=== PATIENT | female | born 1960 | race Caucasian/White ===

== ENCOUNTER 2019-08-02 14:58 | Outpatient (CLI) | payer OTHER, SELFPAY ==
--- NOTE | ~2019-08-02 | XR_ITS ---
EXAMINATION: XR abdomen obstructive series DATE: 08/02/2019 15:20 INDICATION: Acute epigastric pain, nausea. History of small bowel obstruction. TECHNIQUE: Supine and upright views of the abdomen. FINDINGS: Comparison to multiple prior studies sequentially, with oldest reviewed study dated 004. The visualized lung parenchyma is normal.. There is a nonobstructive bowel gas pattern. Gas and stool are seen throughout the colon to the level of the rectum. There is no free air. Lung bases are unre markable. IMPRESSION: 1. No acute abdominal abnormality. Reviewed, dictated and finalized at location A.
[2019-08-02 15:09] LABS: Hematocrit 41.9 % (35.0-49.0); Hemoglobin 14.3 g/dL (12.0-15.0); Mean Corpuscular HGB Conc 34.1 g/dL (32.0-36.0); Mean Corpuscular Hemoglobin 31.8 pg (27.0-31.0); Mean Corpuscular Volume 93.3 fL (78.0-102.0); Mean Platelet Volume 9.6 fl (9.2-11.8); Platelet Count Result 258 K/mm3 (150-420); Red Blood Count 4.49 M/mm3 (4.20-5.40); Red Cell Distribution Width 12.4 % (11.6-14.4); White Blood Count 9.2 K/mm3 (4.8-10.8)
[2019-08-02 15:26] LABS: Alanine Aminotransferase 17 U/L (14-59); Albumin Level 3.9 g/dL (3.4-5.0); Alkaline Phosphatase 119 U/L (46-116); Amylase 61 U/L (25-115); Anion Gap 10.8 mmol/L (7-16); Aspartate Amino Transferase 17 U/L (15-37); Bilirubin,Total 0.5 mg/dL (0.00-1.00); Blood Urea Nitrogen 11 mg/dL (7-18); Calcium 9.4 mg/dL (8.5-10.1); Carbon Dioxide 29 mmol/L (21-32); Chloride 105 mmol/L (98-108); Estimated Glomerular Filt Rate > 60; Glucose 97 mg/dL (70-99); Lipase 158 U/L (73-393); Osmolality Calculated 291 mOsm/kg (285-295); Potassium 3.8 mmol/L (3.5-5.1); Sodium 141 mmol/L (136-145); Total Protein 7.5 g/dL (6.4-8.2)
[2019-08-02 15:30] LABS: Total Cells Counted 100
[2019-08-02 15:31] LABS: Band Neutrophils Percent 0 % (0-6); Basophils Percent Manual 0 % (0-1); Eosinophils Absolute Manual 2.02 K/mm3 (0.02-0.5); Eosinophils Percent Manual 22 % (1-6); Lymphocytes Absolute Manual 2.57 K/mm3 (1.1-4.5); Lymphocytes Percent Manual 28 % (18-44); Monocytes Absolute Manual 0.55 K/mm3 (0.1-0.90); Monocytes Percent Manual 6 % (3-9); Neutrophils Absolute Manual 4.04 K/mm3 (1.7-7.2); Neutrophils Percent Manual 44 % (46-73); Platelet Estimate Adequate (Adequate)
== END 2019-08-02 14:59 | disposition home or self-care (01) ==
LOC: CHSLAB 15:00
PROVIDERS: PCP Internal Medicine; Visit Provider Internal Medicine
DX: R10.9 Unspecified abdominal pain (principal); R11.0 Nausea
CPT/HCPCS: 36415; 74019; 80053; 82150; 83690; 85025

== ENCOUNTER 2019-08-03 12:43 | Outpatient (CLI) | payer OTHER, SELFPAY ==
--- NOTE | ~2019-08-03 | US_ITS ---
US right upper quadrant INDICATION: Nausea. Cholelithiasis. PROCEDURE: Realtime right upper abdominal ultrasound. COMPARISON: No prior studies for comparison. FINDINGS: The pancreas is normal without focal mass or pancreatic ductal dilation. Liver echotexture is normal without focal mass or intrahepatic biliary dilatation. There is normal directional flow i n the portal vein. There are gallstones. No gallbladder wall thickening or pericholecystic fluid. Common bile duct elizabeth ures 3.9 mm. No sonographic Kc's sign. IMPRESSION: 1: Cholelithiasis. Reviewed, dictated and finalized at location A. IMPRESSION: 1: Cholelithiasis.
== END 2019-08-03 12:44 | disposition home or self-care (01) ==
LOC: CHSIMG 12:44
PROVIDERS: PCP Internal Medicine; Visit Provider Internal Medicine
DX: R11.0 Nausea (principal); K80.20 Calculus of gallbladder without cholecystitis without obstruction
CPT/HCPCS: 76705

== ENCOUNTER 2019-08-18 07:37 | Outpatient (CLI) | payer OTHER, SELFPAY ==
[2019-08-18 08:02] LABS: Creatinine Urine 38.31 mg/dL (40-278)
[2019-08-18 08:03] LABS: Creatinine 24 Hour Urine 0.88 g/24 hr (0.60-1.80); Total Volume 24 Hour Urine 2300 ml
[2019-08-18 08:54] LABS: Free T3 2.59 pg/mL (2.18-3.98); Free T4 Free Thyroxine 0.79 ng/dL (0.76-1.46); Phosphorus 4.4 mg/dL (2.6-4.7); Thyroid Stimulating Hormone 2.46 uIU/mL (0.36-3.74)
[2019-08-21 09:44] LABS: Thyroid Peroxidase Antibodies 3 IU/mL (<9)
[2019-08-22 05:48] LABS: Total Volume 2300 mL; Urine Calcium 10.2 mg/dL
[2019-08-22 10:30] LABS: Vitamin D 25 Hydroxy 53 ng/mL (30-100)
[2019-08-22 12:25] LABS: Parathyroid Intact 36 pg/mL (14-64)
[2019-08-24 12:23] LABS: Calcium 9.3 mg/dL (8.5-10.1)
[2019-08-24 16:17] LABS: Calcitonin <2 pg/mL (<=5)
== END 2019-08-18 07:38 | disposition home or self-care (01) ==
LOC: CHSLAB 07:39
PROVIDERS: PCP Internal Medicine; Visit Provider Internal Medicine Endocrinology, Diabetes & Metabolism
DX: E04.1 Nontoxic single thyroid nodule (principal); M81.0 Age-related osteoporosis without current pathological fracture
CPT/HCPCS: 36415; 81050; 82306; 82308; 82310; 82340; 82570; 83970; 84100; 84439; 84443; 84481; 86376

== ENCOUNTER 2020-01-08 06:58 | Outpatient (CLI) | payer OTHER, SELFPAY ==
--- NOTE | ~2020-01-08 | MM_ITS ---
EXAMINATION: MM screening [facility] HISTORY: Screening TECHNIQUE: Craniocaudal and mediolateral oblique 3-D tomosynthesis images were obtained and synthetic 2-D images were generated. CAD analysis was submitted and interpreted. COMPARISON: Comparison to multiple prior studies sequentially, with oldest reviewed study dated 11/20. BREAST PARENCHYMAL COMPOSITION: There are scattered areas of fibroglandular density. FINDINGS: There is no evidence of suspicious mass, calcification, or architectural distortion to sugg est malignancy in either breast. There has been no suspicious interval change. IMPRESSION: 1. No mammographic evidence of malignancy. 2. Recommend routine screening mammography in one year. BI-RADS Category 1: Negative Reviewed, dictated and finalized at location A.
== END 2020-01-08 06:59 | disposition home or self-care (01) ==
LOC: CHSIMG 06:59
PROVIDERS: PCP Internal Medicine; Visit Provider Obstetrics & Gynecology
DX: Z12.31 Encounter for screening mammogram for malignant neoplasm of breast (principal)
CPT/HCPCS: 77063; 77067

== ENCOUNTER 2020-02-06 07:59 | Outpatient (CLI) | payer OTHER, SELFPAY ==
--- NOTE | ~2020-02-06 | DEXA_ITS ---
Bone Density Report Name: Renetta Quach Age: 59 Sex: Female Ethnicity: White Date of : 1960 Indication: osteopenia; prior fracture; hysterectomy; Referring Provider: Jayson Membreno Study: Bone densitometry was performed. Exam Date: February 06, 2020 Accession number: [id number] Bone Density: Region BMD T-score Z-score Classification AP Spine(L1-L4) 0.763 -2.6 -1.1 Osteoporosis Femoral Neck (Left) 0.621 -2.1 -0.8 Osteopenia Total Hip (Left) 0.729 -1.7 -0.8 Osteopenia Femoral Neck (Right) 0.631 -2.0 -0.7 Osteopenia Total Hip (Right) 0.816 -1.0 -0.1 Normal Femoral Neck Mean 0.626 -2.0 -0.7 Osteopenia Total Hip Mean 0.772 -1.4 -0.4 Osteopenia World Health Organization criteria for BMD impression classify patients as: Normal (T-score at or above -1.0), Osteopenia (T-score between -1.0 and -2.5), or Osteoporosis (T-score at or below -2.5). 10-year Fracture Risk: FRAX not reported because: Some T-score for Spine Total or Hip Total or Femoral Neck at or below -2.5 Previous Exams: Region Exam Age BMD T-score BMD Change BMD Change Date g/cm2 vs Baseline vs Previous AP Spine (L1-L4) 02/06/2020 59 0.763 -2.6 -0.178 (-19.0% -0.178 (-19.0% 10/17/2007 47 0.941 -1.0 Total Hip(Left) 02/06/2020 59 0.729 -1.7 -0.094 (-11.4% -0.094 (-11.4% 10/17/2007 47 0.822 -1.0 Total Hip(Right) 02/06/2020 59 0.816 -1.0 0.043 (5.5%)# 0.043 (5.5%)# 10/17/2007 47 0.774 -1.4 *Denotes significance at 95% confidence level, LSC for AP Spine = 0.022 g/cm2, LSC for Total Hip = 0.027 g/cm2 # Denotes dissimilar scan types or analysis methods Clinical Information Provided by Patient: Has had a low trauma fracture Has used the following medications: Boniva (i.e. ibandronate), HRT (i.e. estrogen/hormone therapy), Vitamin D, Calcium Has the following medical conditions: Hysterectomy Patient maximum height was 67 Menopause Age: 43 Drinks caffeinated beverages Onset of menses at age 11 Number of children 2 Impression: The patient has established osteoporosis, based on the Total Spine T-score and the existence of a prior fracture. The patient has risk factors, including: previous fracture. No significant bone loss was observed. Discussion: HIGH RISK OF FRACTURE. BONE DENSITY IS UNDESIRABLY LOW AT ONE OR MORE SKELETAL SITES, CONSISTENT WITH POSTMENOPAUSAL OSTEOPOROSIS. This patient's lowest T-score, in a patient who has previously frac
== END 2020-02-06 08:00 | disposition home or self-care (01) ==
LOC: CHSIMG 08:00
PROVIDERS: PCP Internal Medicine; Visit Provider Obstetrics & Gynecology
DX: Z78.0 Asymptomatic menopausal state (principal)
CPT/HCPCS: 77080

== ENCOUNTER 2020-02-24 07:42 | Outpatient (CLI) | payer OTHER, SELFPAY ==
[2020-02-24 09:13] LABS: Alanine Aminotransferase 19 U/L (14-59); Alkaline Phosphatase 98 U/L (46-116); Anion Gap 9 mmol/L (8-16); Aspartate Amino Transferase 13 U/L (15-37); Bilirubin,Total 0.4 mg/dL (0.00-1.00); Blood Urea Nitrogen 16 mg/dL (7-18); Calcium 9.2 mg/dL (8.5-10.1); Carbon Dioxide 28 mmol/L (21-32); Chloride 106 mmol/L (98-108); Estimated Glomerular Filt Rate > 60; Free T3 2.33 pg/mL (2.18-3.98); Free T4 Free Thyroxine 0.81 ng/dL (0.76-1.46); Glucose 91 mg/dL (70-99); Osmolality Calculated 297 mOsm/kg (285-295); Potassium 4.4 mmol/L (3.5-5.1); Sodium 143 mmol/L (136-145); Total Protein 7.2 g/dL (6.4-8.2)
[2020-02-27 03:58] LABS: Thyroid Peroxidase Antibodies 2 IU/mL (<9)
[2020-02-27 12:25] LABS: Vitamin D 25 Hydroxy 40 ng/mL (30-100)
== END 2020-02-24 07:43 | disposition home or self-care (01) ==
LOC: CHSLAB 07:43
PROVIDERS: PCP Internal Medicine; Visit Provider Internal Medicine Endocrinology, Diabetes & Metabolism
DX: M81.0 Age-related osteoporosis without current pathological fracture (principal); E04.1 Nontoxic single thyroid nodule
CPT/HCPCS: 36415; 80053; 82306; 84439; 84443; 84481; 86376

== ENCOUNTER 2020-03-11 10:20 | Outpatient (CLI) | payer OTHER, SELFPAY ==
--- NOTE | ~2020-03-11 | US_ITS ---
EXAMINATION: US thyroid DATE: 03/11/2020 10:43 INDICATION: Thyroid nodule. TECHNIQUE: Multiple ultrasound images of the thyroid were obtained. COMPARISON: Ultrasound 02/01/2019, 07/08/09 FINDINGS: The right thyroid lobe measures 6.5 x 1.4 x 1.5 cm. The left thyroid lobe measures 4.3 x 1.0 x 1.5 c m. In the left thyroid lobe, there is a 5 mm solid, hypoechoic, ewuyz-nzuz-lzpy nodule margin withou t echogenic foci (TI-RADS TR4). In the right thyroid lobe, there is a 6 mm solid, hypoechoic, wider-t cross-tall nodule with smooth margin without echogenic foci (TR4). In the right thyroid lobe, there is a 2.6 cm solid, hypoechoic, xzdgt-feen-mqxi nodule with smooth margin without echogenic foci (TR4), s table from 07/08/09, likely benign. In the right thyroid lobe, there is an 11 mm solid, hypoechoic, wi jsm-zvtf-xtbf nodule with smooth margin and punctate echogenic foci (TR5), stable from 07/08/09, likel y benign. IMPRESSION: 1. Stable thyroid nodules, likely not clinically significant. No follow-up is needed. Reviewed, dictated and finalized at location A. VABLE PROSTHODONTIST IMPRESSION: 1. Stable thyroid nodules, likely not clinically significant. No follow-up is n eeded.
== END 2020-03-11 10:21 | disposition home or self-care (01) ==
LOC: CHSIMG 10:23
PROVIDERS: PCP Internal Medicine
DX: E04.1 Nontoxic single thyroid nodule (principal)
CPT/HCPCS: 76536

== ENCOUNTER 2021-01-08 08:22 | Outpatient (CLI) | payer OTHER, SELFPAY ==
--- NOTE | ~2021-01-08 | MM_ITS ---
EXAMINATION: MM screening [facility] BI w vonda HISTORY: Screening TECHNIQUE: Craniocaudal and mediolateral oblique 3-D tomosynthesis images were obtained and synthetic 2-D images were generated. CAD analysis was submitted and interpreted. COMPARISON: Comparison to multiple prior studies sequentially, with oldest reviewed study dated 11/20. BREAST PARENCHYMAL COMPOSITION: There are scattered areas of fibroglandular density. FINDINGS: There is no evidence of suspicious mass, calcification, or architectural distortion to sugg est malignancy in either breast. There has been no suspicious interval change. IMPRESSION: 1. No mammographic evidence of malignancy. 2. Recommend routine screening mammography in one year. BI-RADS Category 1: Negative Reviewed, dictated and finalized at location A.
== END 2021-01-08 08:23 | disposition home or self-care (01) ==
LOC: CHSIMG 08:24
PROVIDERS: PCP Internal Medicine; Visit Provider Obstetrics & Gynecology
DX: Z12.31 Encounter for screening mammogram for malignant neoplasm of breast (principal)
CPT/HCPCS: 77063; 77067

== ENCOUNTER 2021-10-20 11:22 | Outpatient (CLI) | payer OTHER, SELFPAY ==
--- NOTE | ~2021-10-20 | XR_ITS ---
EXAMINATION: XR chest 2V 10/20/2021 12:04 INDICATION: Possible Covid exposure PROCEDURE: 2 view chest COMPARISON: 04/13/2012 FINDINGS: The lungs are clear. The lungs are hyperinflated which is consistent with, but not diagnost ic of chronic obstructive pulmonary disease. The cardiomediastinal silhouette is within normal limits . There are no pleural effusions. There is no pneumothorax suspected. IMPRESSION: 1: NO ACUTE CARDIOPULMONARY DISEASE. Reviewed, dictated and finalized at location A.
[2021-10-20 12:24] LABS: Basophils Absolute Auto 0.05 K/mm3 (0.00-0.10); Basophils Percent Auto 0.8 % (0.0-1.0); Eosinophils Absolute Auto 0.21 K/mm3 (0.02-0.50); Eosinophils Percent Auto 3.4 % (1.0-6.0); Hematocrit 39.3 % (35.0-49.0); Immature Granulocyte Absolute 0.03 K/mm3 (0.00-0.00); Immature Granulocyte Percent A 0.5 % (0.0-0.0); Lymphocytes Absolute Auto 2.05 K/mm3 (1.10-4.50); Lymphocytes Percent Auto 32.9 % (18.0-42.0); Mean Corpuscular HGB Conc 33.1 g/dL (32.0-36.0); Mean Corpuscular Hemoglobin 31.1 pg (27.0-31.0); Mean Platelet Volume 9.7 fl (9.2-11.8); Monocytes Absolute Auto 0.42 K/mm3 (0.10-0.90); Monocytes Percent Auto 6.7 % (2.0-11.0); Neutrophils Absolute Auto 3.5 K/mm3 (1.7-7.2); Neutrophils Percent Auto 55.7 % (50.0-70.0); Platelet Count Result 304 K/mm3 (150-420); Red Blood Count 4.18 M/mm3 (4.20-5.40); Red Cell Distribution Width 12.1 % (11.6-14.4); White Blood Count 6.2 K/mm3 (4.8-10.8)
[2021-10-20 12:30] LABS: Appearance Urine Clear (Clear); Bilirubin Urine Negative (Negative); Color Urine Light Yellow (Yellow); Glucose Urine UA Negative (Negative); Ketones Urine Negative (Negative); Leukocyte Esterase Ur Negative (Negative); Nitrate Urine Negative (Negative); Protein Urine Negative (Negative); Specific Grav Ur <= 1.005 (1.010-1.020); Urobilinogen Urine 0.2 mg/dL (0.2-1.0)
[2021-10-20 12:39] LABS: Add Urine Microscopic? YES; Blood Urine Trace-Intact (Negative); RBC Urine 0-2 /hpf (0-2); Squamous Epithelial Cell Urine Rare /hpf (Few); WBC Urine None seen /hpf (0-3)
[2021-10-20 12:40] LABS: Bacteria Urine None seen /hpf
[2021-10-20 12:49] LABS: Alanine Aminotransferase 22 U/L (14-59); Albumin Level 3.8 g/dL (3.4-5.0); Alkaline Phosphatase 96 U/L (46-116); Anion Gap 9 mmol/L (8-16); Aspartate Amino Transferase 18 U/L (15-37); Bilirubin,Total 0.7 mg/dL (0.00-1.00); Blood Urea Nitrogen 14 mg/dL (7-18); Calcium 9.2 mg/dL (8.5-10.1); Carbon Dioxide 25 mmol/L (21-32); Chloride 105 mmol/L (98-108); Estimated Glomerular Filt Rate > 60; Glucose 90 mg/dL (70-99); Osmolality Calculated 288 mOsm/kg (285-295); Potassium 3.8 mmol/L (3.5-5.1); Sodium 139 mmol/L (136-145); Total Protein 7.2 g/dL (6.4-8.2)
[2021-10-20 13:02] LABS: Influenza A QL RT-PCR Negative (Negative); Influenza B QL RT-PCR Negative (Negative); SARS-CoV-2 RNA PCR Positive (Negative)
== END 2021-10-20 11:23 | disposition home or self-care (01) ==
LOC: CHSLAB 11:28
PROVIDERS: PCP Internal Medicine; Visit Provider Internal Medicine
DX: U07.1 COVID-19 (principal); J06.9 Acute upper respiratory infection, unspecified
CPT/HCPCS: 36415; 71046; 80053; 81001; 85025; 87086; 87502; C9803; U0003; U0005

== ENCOUNTER 2021-12-24 07:58 | Day surgery (SDC) | payer OTHER, SELFPAY ==
[2021-11-05 10:21] VITALS: BMI 25.7
[2021-12-11 09:11] VITALS: BMI 26.5
[2021-12-24 08:15] VITALS: BP 111/73; PULSE 95; RESP 20; TEMP 36.9; O2SAT 100
[2021-12-24 08:21] VITALS: BMI 25.2
[2021-12-24] MEDS: LACTATED RINGERS 1,000 ML 150 ML IV CONT (08:35)
--- NOTE | 2021-12-24 08:54 | P.PNAN_ITS ---
Anes - Initial Pre Proc Eval Procedure: Operation Date: 12/24/21 09:30 Proposed Procedures p Screening Colonoscopy - Madan Kaiser DO Date/Time: 12/24/21 08:54 Surgeon: Madan Kaiser DO Pre Op Diagnosis: Neoplasm Screening Patient Data Age: 61 Gender: F Height: 1.7 m Weight: 72.95 kg Last Vital Signs Temp 36.9 C 12/24/21 08:15 Pulse 95 12/24/21 08:15 Resp 20 12/24/21 08:15 BP 111/73 12/24/21 08:15 Pulse Ox 100 12/24/21 08:15 O2 Del Method Room Air 12/24/21 08:15 Allergies Allergy/AdvReac Type Severity Reaction Status Date / Time morphine AdvReac Unknown NAUSEA Verified 12/24/21 08:15 Home Medications Medication Instructions Recorded Confirmed Type calcium carbonate 500 mg calcium 500 mg PO DAILY 12/04/20 12/24/21 History (1,250 mg) tablet (Calcium 500) cholecalciferol (vitamin D3) 125 125 mcg PO DAILY 12/04/20 12/24/21 History mcg (5,000 unit) capsule Patient hx anesthesia problems: none Family hx anesthesia problems: none Results Review: All pre-operative results and documents have been reviewed as part of the pre- operative evaluation. [facility] Past Medical History Medical History Anxiety Asthma Enlarged thyroid gland GERD (gastroesophageal reflux disease) Thyroid disease Surgical History Surgical History H/O colonoscopy H/O exploratory laparotomy H/O tubal ligation H/O: hysterectomy Family History Family History Mother Family history of ulcerative colitis Carcinoma of colon Low kidney function Father Family history of malignant neoplasm Family history of coronary artery disease Sibling Carcinoma of colon Patient's sister is Grandparent Cancer Hypertension Social History Social History Smoking status: Former smoker Tobacco type: cigarettes Second hand tobacco smoke exposure: No Smoking end date: 03/29/82 Alcohol intake: current Alcohol use details: socially Substance use: never Substance use type: does not use Living arrangements: with family 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 Informed Consent: The patient's anesthetic plan and its attendant risks and benefits were discussed with the patient/family/POA. Questions were solicited and answers provided to the satisfaction of the patient/family/POA.
--- NOTE | 2021-12-24 09:12 | PM.IMHP ---
H&P: HPI History of Present Illness Date/Time: 12/24/21 09:12 Chief Complaint: screening for colorectal cancer Narrative: this is a 61-year-old woman who presents for colonoscopy. Her last colonoscopy was 10-12 years ago. She does have some family history of ulcerative colitis and Crohn's, but she denies family history of colon cancer. She denies any prior history of polyps, hematochezia, or melena. She does have occasional constipation. Review of Systems Review of Systems: All systems reviewed & are unremarkable except as noted in HPI and below Constitutional: Constitutional: Denies chills, Denies fever(s), Denies headache(s) and Denies weight loss Eyes: Eyes: Denies change in vision ENT: Denies dizziness, Denies headache(s), Denies neck mass and Denies throat swelling Cardiovascular: Cardiovascular: Denies chest pain, Denies lightheadedness and Denies dyspnea Respiratory: Respiratory: Denies cough, Denies dyspnea and Denies wheezing Gastrointestinal: Gastrointestinal: Denies abdominal pain, Denies change in bowel habits, Denies nausea and Denies vomiting Genitourinary: Genitourinary: Denies hematuria and Denies dysuria Musculoskeletal: Musculoskeletal: Reports as per HPI Integumentary/Breasts: Skin/Breast: Reports as per HPI Neurologic: Denies dizziness and Denies headache(s) Allergic/Immunologic: Allergic/Immunologic: Denies throat swelling and Denies wheezing PMFSH Past Medical History Medical History Anxiety Asthma Enlarged thyroid gland GERD (gastroesophageal reflux disease) Thyroid disease Surgical History Surgical History H/O colonoscopy H/O exploratory laparotomy H/O tubal ligation H/O: hysterectomy Family History Family History Mother Family history of ulcerative colitis Carcinoma of colon Low kidney function Father Family history of malignant neoplasm Family history of coronary artery disease Sibling Carcinoma of colon Patient's sister is Grandparent Cancer Hypertension Social History Social History Smoking status: Former smoker Tobacco type: cigarettes Second hand tobacco smoke exposure: No Smoking end date: 03/29/82 Alcohol intake: current Alcohol use details: socially Substance use: never Substance use type: does not use Living arrangements: with family 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 Gender identity (if verbalized by the patient): Female Spiritual care concerns: No Meds Home Medications and Allergies Home Medications Medication Instructions Recorded Confirmed Type calcium carbonate 500 mg calcium 500 mg PO DAILY 12/04/20 12/24/21 History (1,250 mg) tablet (Calcium 500) cholecalciferol (vitamin D3) 125 125 mcg PO DAILY 12/04/20 12/24/21 History mcg (5,000 unit) capsule Allergies Allergy/AdvReac Type Severity Reaction Status Date / Time morphine AdvReac Unknown NAUSEA Verified 12/24/21 08:15 Vital Signs Vital Signs - 24 hr 12/24/21 08:15 Temperature 36.9 C Pulse Rate 95 Respiratory Rate 20 Blood Pressure 111/73 Pulse Oximetry 100 Oxygen Delivery Room Air Exam Const: General: no acute distress and alert Orientation/consciousness: patient oriented x3 HENMT: Head: normocephalic and atraumatic Ears: hearing grossly normal bilaterally General nose exam: Normal nares present Mouth: Yes Normal oral and palatal mucosa present Eyes: Periorbital: periorbital findings normal Sclera: sclerae normal EOM: EOMs intact bilaterally Neck: Neck: normal visual inspection, no lymphadenopathy and trachea midline Chest: Chest palpation & inspection: normal inspection of the chest Resp: Effort & Inspection: normal respiratory effo
[2021-12-24 09:47] VITALS: BP 101/53; PULSE 76; RESP 16; O2SAT 100
[2021-12-24 09:57] VITALS: BP 108/72; PULSE 74; RESP 16; O2SAT 100
[2021-12-24 10:07] VITALS: BP 108/61; PULSE 68; RESP 16
--- NOTE | 2021-12-24 10:15 | SUR.PHASEII ---
0958; PT AWAKE AND ALERT. SPOUSE AT BEDSIDE. PT EATING AND DRINKING. DENIES CRAMPING/ACHY TO LOW ABDOMEN NOW. STATES I FEEL FINE
--- NOTE | 2021-12-24 10:17 | WPDANESPN ---
Anes - Prog Note Post-Op Date/Time: 12/24/21 10:17 Cardiovascular status: normal Respiratory status: normal Airway patency: baseline Mental status: baseline Post-Op hydration status: normal Vital Signs: Last Vital Signs Temp 36.9 C 12/24/21 08:15 Pulse 68 12/24/21 10:07 Resp 16 12/24/21 10:07 BP 108/61 12/24/21 10:07 Pulse Ox 100 12/24/21 09:57 O2 Del Method Room Air 12/24/21 10:07 Pain Score (VAS): 0 I/O: Intake & Output 12/23/21 12/24/21 12/24/21 23:59 07:59 15:59 Intake Total 700 Balance 700 Patient Feedback: Patient satisfied with anesthetic care.
== END 2021-12-24 10:25 | disposition home or self-care (01) ==
PROVIDERS: PCP Internal Medicine; Visit Provider Surgery
PROC: 0DJD8ZZ Inspection of Lower Intestinal Tract, Via Natural or Artificial Opening Endoscopic (ICD-10-PCS; CPT 45378; principal; 2021-12-24 09:30)
DX: Z12.11 Encounter for screening for malignant neoplasm of colon (principal)
CPT/HCPCS: 45380

== ENCOUNTER 2021-12-24 13:00 | Outpatient (NON) | payer OTHER, SELFPAY | END 2021-12-24 13:01 | disposition home or self-care (01) | PROVIDERS: PCP Internal Medicine; Visit Provider Surgery | DX: K63.5 Polyp of colon (principal); K62.1 Rectal polyp | CPT/HCPCS: 88305 ==

== ENCOUNTER 2022-01-14 08:25 | Outpatient (CLI) | payer OTHER, SELFPAY ==
--- NOTE | ~2022-01-14 | MM_ITS ---
EXAMINATION: MM screening [facility] HISTORY: Screening TECHNIQUE: Craniocaudal and mediolateral oblique 3-D tomosynthesis images were obtained and synthetic 2-D images were generated. CAD analysis was submitted and interpreted. COMPARISON: No prior mammogram is available for comparison at this institution. BREAST PARENCHYMAL COMPOSITION: There are scattered areas of fibroglandular density. FINDINGS: There is an intramammary lymph node in the upper outer quadrant of the right breast. There is no evidence of suspicious mass, calcification, or architectural distortion to suggest malignancy i n either breast. There has been no suspicious interval change. IMPRESSION: 1. No mammographic evidence of malignancy. 2. Recommend routine screening mammography in one year. BI-RADS Category 2: Benign finding(s). Reviewed, dictated and finalized at location A.
== END 2022-01-14 08:26 | disposition home or self-care (01) ==
LOC: CHSIMG 08:26
PROVIDERS: PCP Internal Medicine; Visit Provider Obstetrics & Gynecology
DX: Z12.31 Encounter for screening mammogram for malignant neoplasm of breast (principal)
CPT/HCPCS: 77063; 77067

== ENCOUNTER 2022-02-10 08:33 | Outpatient (CLI) | payer OTHER, SELFPAY ==
--- NOTE | ~2022-02-10 | DEXA_ITS ---
Bone Density Report Name: DEANN BERMUDEZ Age: 61 Sex: Female Ethnicity: White Date of : 1960 Indication: postmenopausal; screening for osteoporosis; height loss; prior fracture; hysterectomy; Referring Provider: Jayson Membreno Study: Bone densitometry was performed. Exam Date: February 10, 2022 Accession number: [id number] Bone Density: Region BMD T-score Z-score Classification AP Spine(L1-L4) 0.752 -2.7 -1.1 Osteoporosis Femoral Neck (Left) 0.632 -2.0 -0.6 Osteopenia Total Hip (Left) 0.718 -1.8 -0.8 Osteopenia Femoral Neck (Right) 0.594 -2.3 -0.9 Osteopenia Total Hip (Right) 0.773 -1.4 -0.3 Osteopenia Femoral Neck Mean 0.613 -2.1 -0.7 Osteopenia Total Hip Mean 0.745 -1.6 -0.5 Osteopenia World Health Organization criteria for BMD impression classify patients as: Normal (T-score at or above -1.0), Osteopenia (T-score between -1.0 and -2.5), or Osteoporosis (T-score at or below -2.5). 10-year Fracture Risk: FRAX not reported because: Some T-score for Spine Total or Hip Total or Femoral Neck at or below -2.5 Clinical Information Provided by Patient: Has had a low trauma fracture Has used the following medications: Boniva (i.e. ibandronate), HRT (i.e. estrogen/hormone therapy), Vitamin D, Calcium Has the following medical conditions: Hysterectomy Patient maximum height was 67 Menopause Age: 43 Drinks caffeinated beverages Onset of menses at age 11 Number of children 2 Impression: The patient has established osteoporosis, based on the Total Spine T-score and the existence of a prior fracture. The patient has risk factors, including: previous fracture. Discussion: HIGH RISK OF FRACTURE. BONE DENSITY IS UNDESIRABLY LOW AT ONE OR MORE SKELETAL SITES, CONSISTENT WITH POSTMENOPAUSAL OSTEOPOROSIS. This patient's lowest T-score, in a patient who has previously fractured, meets the World Health Organization's (WHO) criteria for severe osteoporosis. In untreated patients, the risk of osteoporotic fracture increases approximately two-fold for each 1.0 SD decrease in T-score. Low bone density is not the only risk factor for fracture; also consider factors such as patient's age, frailty or poor health, risk of falling, risk of injury, previous osteoporotic fracture, family history of osteoporosis, cigarette smoking, low body weight, etc. Not everyone with low bone mineral density has osteoporosis; osteomalacia and other metabolic bone disorders should also be considered. Patients who have osteoporosis should be evaluated for specific diseases and conditions (secondary causes) that may cause or contribute to bone loss. The [place] [employer]ocrinologists (AACE) and National Osteoporosis Foundation (NOF) recommend pharmacologic intervention for all postmenopausal women whose
== END 2022-02-10 08:34 | disposition home or self-care (01) ==
LOC: CHSIMG 08:34
PROVIDERS: PCP Internal Medicine; Visit Provider Obstetrics & Gynecology
DX: Z78.0 Asymptomatic menopausal state (principal)
CPT/HCPCS: 77080

== ENCOUNTER 2023-01-15 07:46 | Outpatient (CLI) | payer OTHER, SELFPAY ==
--- NOTE | ~2023-01-15 | MM_ITS ---
EXAMINATION: MM screening [facility] BI w vonda HISTORY: Screening TECHNIQUE: Craniocaudal and mediolateral oblique 3-D tomosynthesis images were obtained and synthetic 2-D images were generated. CAD analysis was submitted and interpreted. COMPARISON: Comparison to multiple prior studies sequentially, with oldest reviewed study dated 11/26. BREAST PARENCHYMAL COMPOSITION: There are scattered areas of fibroglandular density. FINDINGS: There is no evidence of suspicious mass, calcification, or architectural distortion to sugg est malignancy in either breast. There has been no suspicious interval change. IMPRESSION: 1. No mammographic evidence of malignancy. 2. Recommend routine screening mammography in one year. BI-RADS Category 1: Negative Reviewed, dictated and finalized at location A.
== END 2023-01-15 07:47 | disposition home or self-care (01) ==
LOC: CHSIMG 07:47
PROVIDERS: PCP Internal Medicine; Visit Provider Obstetrics & Gynecology
DX: Z12.31 Encounter for screening mammogram for malignant neoplasm of breast (principal)
CPT/HCPCS: 77063; 77067

== ENCOUNTER 2023-04-08 09:23 | Outpatient (CLI) | payer OTHER, SELFPAY ==
[2023-04-08] MEDS: ZOLEDRONIC ACID 5 MG/100 ML 100 ML 400 MG IVPB (09:45)
[2023-04-08 10:03] VITALS: BMI 26.6
[2023-04-08 10:09] VITALS: BP 124/70; PULSE 72; RESP 14; O2SAT 99
--- NOTE | 2023-04-08 10:11 | PC.NURSE ---
Patient here for yearly Reclast. Education given. No concerns voiced. IV Reclast administered. SEE MAR. Tolerated well. Safe exit of hospital.
== END 2023-04-08 09:24 | disposition home or self-care (01) ==
LOC: CHSTREATRM 09:27
PROVIDERS: PCP Internal Medicine; Visit Provider Internal Medicine
DX: M81.0 Age-related osteoporosis without current pathological fracture (principal)
CPT/HCPCS: 96365; 96374; J3489

== ENCOUNTER 2023-09-15 09:50 | Outpatient (CLI) | payer OTHER, SELFPAY ==
--- NOTE | ~2023-09-15 | XR_ITS ---
EXAMINATION: XR lumbar spine 2-3V DATE: 09/15/2023 10:09 INDICATION: Lumbar pain, right greater than left. Osteoporosis. TECHNIQUE: Anteroposterior and lateral views of the lumbar spine, and cone-down lateral view of the l umbosacral junction were obtained. COMPARISON: CT abdomen and pelvis dated 03/31/2018 FINDINGS: 7 degree lumbar levocurvature. Sagittal alignment is normal. Vertebral body heights are nor mal. Moderate disc height loss at L2-L3. Mild disc height loss at T12-L1 and L3-L4 through L5-S1. Mod erate bilateral sacroiliac osteoarthritis. Calcified gallstone in the right upper quadrant. IMPRESSION: 1. Some degree lumbar levocurvature with mild to moderate spondylosis. 2. Cholelithiasis. 2. Moderate bilateral sacral iliac osteoarthritis. Reviewed, dictated and finalized at location A.
== END 2023-09-15 09:51 | disposition home or self-care (01) ==
LOC: CHSIMG 09:51
PROVIDERS: PCP Internal Medicine; Visit Provider Nurse Practitioner Family
DX: M54.50 Low back pain, unspecified (principal); M81.0 Age-related osteoporosis without current pathological fracture; M43.06 Spondylolysis, lumbar region; M41.86 Other forms of scoliosis, lumbar region; K80.20 Calculus of gallbladder without cholecystitis without obstruction; M47.898 Other spondylosis, sacral and sacrococcygeal region
CPT/HCPCS: 72100

== ENCOUNTER 2024-01-18 07:43 | Outpatient (CLI) | payer OTHER, SELFPAY ==
--- NOTE | ~2024-01-18 | MM_ITS ---
EXAMINATION: MM screening [facility] w [facility] HISTORY: Screening TECHNIQUE: Craniocaudal and mediolateral oblique 3-D tomosynthesis images were obtained and synthetic 2-D images were generated. CAD analysis was submitted and interpreted. COMPARISON: Comparison to multiple prior studies sequentially, with oldest reviewed study dated 12/27. BREAST PARENCHYMAL COMPOSITION: Not dense: There are scattered areas of fibroglandular density. FINDINGS: There is no evidence of suspicious mass, calcification, or architectural distortion to sugg est malignancy in either breast. There has been no suspicious interval change. IMPRESSION: 1. No mammographic evidence of malignancy. 2. Recommend routine screening mammography in one year. BI-RADS Category 1: Negative Reviewed, dictated and finalized at location B.
== END 2024-01-18 07:44 | disposition home or self-care (01) ==
LOC: CHSIMG 07:45
PROVIDERS: PCP Internal Medicine; Visit Provider Obstetrics & Gynecology
DX: Z12.31 Encounter for screening mammogram for malignant neoplasm of breast (principal)
CPT/HCPCS: 77063; 77067

== ENCOUNTER 2024-02-14 07:36 | Outpatient (CLI) | payer OTHER, SELFPAY ==
--- NOTE | ~2024-02-14 | DEXA_ITS ---
Bone Density Report Name: DEANN BERMUDEZ Age: 63 Sex: Female Ethnicity: White Date of : 1960 Indication: postmenopausal osteoporosis; monitoring treatment; hysterectomy; secondary osteoporosis; Referring Provider: Jayson Membreno Study: Bone densitometry was performed. Exam Date: February 14, 2024 Accession number: [id number] Bone Density: Region BMD T-score Z-score Classification AP Spine(L1-L4) 0.810 -2.2 -0.4 Osteopenia Femoral Neck (Left) 0.630 -2.0 -0.5 Osteopenia Total Hip (Left) 0.765 -1.5 -0.3 Osteopenia Femoral Neck (Right) 0.568 -2.5 -1.0 Osteoporosis Total Hip (Right) 0.772 -1.4 -0.2 Osteopenia Femoral Neck Mean 0.599 -2.3 -0.8 Osteopenia Total Hip Mean 0.768 -1.4 -0.2 Osteopenia World Health Organization criteria for BMD impression classify patients as: Normal (T-score at or above -1.0), Osteopenia (T-score between -1.0 and -2.5), or Osteoporosis (T-score at or below -2.5). 10-year Fracture Risk: FRAX not reported because: Some T-score for Spine Total or Hip Total or Femoral Neck at or below -2.5 Treated for osteoporosis Previous Exams: Region Exam Age BMD T-score BMD Change BMD Change Date g/cm2 vs Baseline vs Previous AP Spine (L1-L4) 02/14/2024 63 0.810 -2.2 0.058 (7.7%)* 0.058 (7.7%)* 02/10/2022 61 0.752 -2.7 Total Hip(Left) 02/14/2024 63 0.765 -1.5 0.047 (6.5%)* 0.047 (6.5%)* 02/10/2022 61 0.718 -1.8 Total Hip(Right) 02/14/2024 63 0.772 -1.4 -0.001 (-0.1%) -0.001 (-0.1%) 02/10/2022 61 0.773 -1.4 *Denotes significance at 95% confidence level, LSC for AP Spine = 0.022 g/cm2, LSC for Total Hip = 0.027 g/cm2 Clinical Information Provided by Patient: Has secondary osteoporosis Is being treated for osteoporosis Has used the following medications: Boniva (i.e. ibandronate), HRT (i.e. estrogen/hormone therapy), Reclast (i.e. zoledronate), Vitamin D, Calcium Has the following medical conditions: Hysterectomy Patient maximum height was 67 Menopause Age: 43 No regular weight bearing exercise Drinks caffeinated beverages Onset of menses at age 11 Number of children 2 Impression: The patient has osteoporosis, based on the Right Femoral Neck T-score. No significant bone loss was observed. Discussion: PATIENT UNDER TREATMENT WITH NO SIGNIFICANT BMD LOSS SINCE LAST EXAM. In an untreated patient, BMD typically declines with age. A lack of decline or gain is usually a sign that treatment is efficacious and fracture risk is reduced. It is important to ask patients whether they are taking their medications and to encourage continued and appropriate compliance with their osteoporosis therapies to reduce fracture risk. It is also important to review their risk factors and encourage appropriate calcium and vitamin D intakes, exercise, fall prevention and other lifestyle measures. Follow-Up: Consider a repeat BMD and Vertebral Fracture Assessment (VFA) exam in 2 years or sooner if medically necessary, to reassess this patient's status. Reported by: CATIA on 02/14/2024 12:33:00 PM. Reviewed, dictated and finalized at location A.
== END 2024-02-14 07:37 | disposition home or self-care (01) ==
LOC: CHSIMG 07:38
PROVIDERS: PCP Internal Medicine; Visit Provider Obstetrics & Gynecology
DX: Z78.0 Asymptomatic menopausal state (principal); M85.89 Other specified disorders of bone density and structure, multiple sites; M81.0 Age-related osteoporosis without current pathological fracture
CPT/HCPCS: 77080

== ENCOUNTER 2024-12-04 08:45 | Outpatient (CLI) | payer MEDICARE, SELFPAY ==
--- NOTE | ~2024-12-04 | CT_ITS ---
CT abdomen pelvis w con Clinical History: CHRONIC PELVIC PAIN . Comparison: CT abdomen and pelvis 03/31/2018 Technique: Axial images lung bases to symphysis pubis 100 mL Omnipaque 350 Coronal, sagittal reformats CT images acquired with automatic exposure control for dose reduction DLP: 438 mGy-cm Findings: Lung bases: Clear. Visualized heart and pericardium: Unremarkable. Liver: Tiny cyst segment IVb. Gallbladder: Stone. Spleen: Unremarkable. Pancreas: Unremarkable. Adrenal glands: Unremarkable. Kidneys: Right kidney- No hydronephrosis. No renal stones. Left kidney- No hydronephrosis. No renal stones. Distal esophagus/stomach: Unremarkable. Small bowel loops: Normal caliber and wall thickness. Colon: Normal caliber and wall thickness. Appendix not seen. Nodes: No enlarged nodes. Peritoneum: No ascites. No free air. Urinary bladder: Small urachal diverticulum not excluded. Uterus: Removed. Adnexa: No masses. Bones: No acute bony abnormality. Soft tissues: Unremarkable. Aorta: No aneurysm or dissection. IVC: Duplicated. Main portal vein/SMV/splenic vein: Patent. IMPRESSION: 1. No acute findings. Reviewed, dictated and finalized at location R. IMPRESSION: 1. No acute findings.
--- OUTSIDE RECORDS SUMMARY | 2024-12-04 09:03 | XMS_ITS | Clinical Summary ---
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 Name Role Phone Duane Chowdhury MD Primary Care Provider Allergies Active Allergy Reactions Criticality Noted Date Comments Morphine Nausea only Low 09/11/2021 Medications calcium carbonate-vit D3-min 600 mg calcium- 400 unit tablet Take by mouth Active Active Problems No known active problems Surgical History Surgery Date Site/Laterality Comments TUBAL LIGATION HYSTERECTOMY OTHER SURGICAL HISTORY exploratory for bowel obstruction Medical History Medical History Date Comments Osteoporosis Family History Medical History Relation Name Comments Multiple myeloma Father Colon cancer Mother's Brother Crohn's disease Mother's Brother Liver disease Mother's Brother Colon cancer Mother's Sister Lung cancer Mother's Sister Relation Name Status Comments Father Mother's Brother Mother's Sister Social History Tobacco Use Types Packs/Day Years Used Date Smoking Tobacco: Never Assessed AUDIT-C Answer Date Recorded Q1: How often do you have a drink containing alc ohol? 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 Gender Identity Not on file Sexual Orientation Not on file Obstetrics History Last Filed Vital Signs Vital Sign Reading Time Taken Comments Blood Pressure - - Pulse - - Temperature - - Respiratory Rate - - Oxygen Saturation - - Inhaled Oxygen Concentration - - Weight 74.4 kg (164 lb) 09/11/2021 12:42 PM CDT Height 170.2 cm (5' 7) 09/11/2021 12:42 PM CDT Body Mass Index 25.69 09/11/2021 12:42 PM CDT Plan of Treatment Health Maintenance Due Date Last Done Comments Breast Cancer Screening-Mammogram 1960 Depression Screening 1960 Fall Risk Assessment 1960 Hepatitis C Screening 1960 Osteoporosis Screening-Bone Density Scan 1960 Hepatitis B Screening 07/27/1977 Colon Cancer Screening-Colonoscopy 11/19/20202010 Zoster Vaccine (2 of 2) 12/06/2020 10/11/2020 Pneumococcal vaccine 65+ (2 of 2 - PCV20 or PCV21) 07/25/2022 07/25/2021 Covid-19 Vaccine (4 - 2023-2 5 season) 2023 02/18/2021, 05/22/2020, 04/17/2020 Well Visit 65+ 07/27/2024 Influenza Vaccine (#1) 2024 , 12/25/2019, 01/05/2019, Additional history exists DTaP/Tdap/Td Vaccine (2 - Td or Tdap) 12/28/2026 12/28/2016 Procedures Procedure Name Priority Date/Time Associated Diagnosis Comments COLONOSCOPY 11/19/2010 12:00 AM CDT from Last 3 Months or Most Recently Relevant to Health Maintenance Results * COLONOSCOPY (11/19/2010 12:00 AM CDT) Anatomical Region Laterality Modality Other Narrative 11/19/2010 12:00 AM CDT Ordered by an unspecified provider. Procedure Note Provider, MD Edwina - 11/19/2010 12:00 AM CDT PROCEDURE REPORT Patient: RENETTA QUACH Account: [id number] Room No: : 1960 Patient Type: OPA Attend.: Valdo Lundy M.D. Admit Date: 11/19/2010 Dict.: Valdo Lundy M.D. Disch. Date: PROCEDURE PERFORMED: Diagnostic colonoscopy. INDICATION: Constipation, family history of colon cancer. DATE OF PROCEDURE: 11/19/2010 PRIMARY CARE PHYSICIAN: Dr. Duane Chowdhury. BRIEF HISTORY AND PHYSICAL: The patient is a 50-year-old white female. Patient has change in bowel habits and new onset constipation. She didhave a colonoscopy about 5 or 6 years ago. Colonoscopy is being done forevaluation. PROCEDURE: Sedation was provided by anesthesia service. The procedureof colonoscopy including indications and possible complications ofbleeding, infection and perforation requiring surgery were discussed with thepatient and consent was obtained. All vital signs were monitored during the procedure. Rectal exam prior to colonoscopy was unremarkable. The scope introduced into the rectum and advanced all the way to thececum which was identified by the ileocecal valve and appendiceal orifice. The entire visualized colon appeared normal. No polyps and no mass lesions noted. No inflammatory changes noted. The rectum and retroflexion ofthe rectum were normal. IMPRESSION: Normal colonoscopy. RECOMMENDATIONS: 1. Maintain high fiber diet. 2. Repeat colonoscopy for screening for colon cancer in 8 to 10years. Alyx Kang/mason TD: 11/20/2010 07:09 CC: Duane Chowdhury M.D. PROCEDURE REPORT Authenticated by Valdo Lundy MD On 12/09/2010 01:13:10 PM Historical Provider ENDOSCOPY PROCEDURES Rosey l Result from Last 3 Months or Most Recently Relevant to Health Maintenance Insurance [facility] CHOICE PLUS CHOICE [facility]US [id number] Care Teams Small Piece Cutter Relationship Specialty Start Date End Date Duane Chowdhury MD [address] [place] [address] PCP - General Internal Medicine 08/04/21
[2024-12-04 09:38] LABS: Estimated Glomerular Filt Rate > 60
== END 2024-12-04 08:46 | disposition home or self-care (01) ==
LOC: CHSIMG 08:51
PROVIDERS: PCP Internal Medicine; Visit Provider Internal Medicine
DX: R10.2 Pelvic and perineal pain (principal)
CPT/HCPCS: 74177; Q9967

== ENCOUNTER 2025-01-18 07:47 | Outpatient (CLI) | payer MEDICARE, SELFPAY ==
--- NOTE | ~2025-01-18 | MM_ITS ---
EXAMINATION: MM screening [facility] BI w vonda HISTORY: Screening TECHNIQUE: Craniocaudal and mediolateral oblique 3-D tomosynthesis images were obtained and synthetic 2-D images were generated. CAD analysis was submitted and interpreted. COMPARISON: Comparison to multiple prior studies sequentially, with oldest reviewed study dated , 01/08/2020 BREAST PARENCHYMAL COMPOSITION: There are scattered areas of fibroglandular density. FINDINGS: There is no evidence of suspicious mass, calcification, or architectural distortion to suggest malignancy in either breast. IMPRESSION: 1. No mammographic evidence of malignancy. 2. Recommend routine screening mammography in one year. BI-RADS Category 1: Negative Reviewed, dictated and finalized at location B.
--- OUTSIDE RECORDS SUMMARY | 2025-01-18 07:50 | XMS_ITS | Clinical Summary ---
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 Gender Identity Not on file Sexual Orientation [...] 2 - PCV20 or PCV21) 07/25/2022 07/25/2021 Well Visit 65+ 07/27/2024 Covid-19 Vaccine (4 - 2024-2 6 season) 2024 02/18/2021, 05/22/2020, 04/17/2020 Influenza Vaccine (#1) 2024 , 12/25/2019, 01/05/2019, [...] CDT PROCEDURE REPORT Patient: RENETTA QUACH Account: [id number] Room No: : 1960 Patient Type: OPA [...] Most Recently Relevant to Health Maintenance Insurance [facility] CHOICE PLUS [facility] H[facility]/PPO Address: [facility] [address] [place] [address] CHOICE PLUS [facility] H[facility]/PPO [place]: [place] [id number] CHOICE PLUS [facility] H[facility]/PPO Address: [place] [address] Care Teams Pulp Refiner Operator Relationship Specialty Start Date End Date Duane Chowdhury MD [address] [place] [address] PCP - General Internal Medicine 08/04/21
== END 2025-01-18 07:48 | disposition home or self-care (01) ==
LOC: CHSIMG 07:48
PROVIDERS: PCP Internal Medicine; Visit Provider Obstetrics & Gynecology
DX: Z12.31 Encounter for screening mammogram for malignant neoplasm of breast (principal)
CPT/HCPCS: 77063; 77067